=== PATIENT | male | born 1960 | race African-American/Black ===

== ENCOUNTER → 2017-03-08 | Outpatient (CLI) | payer OTHER ==
[~2017-03-08] VITALS: Ht 188 cm; Wt 101.2 kg
[~2017-03-08] MED LIST: CHLORHEXIDINE GLUCONATE 2 % 1 PACK (2 CLOTHS) TOPICAL PRN; INSULIN HUMAN REGULAR 1,000 UNITS/10 ML VIAL SQ PRN; LACTATED RINGER'S 1000 ML IV PRN; LIDOCAINE HCL 1% PF 5 ML SYRINGE OTHER ONE; METOPROLOL TARTRATE 25 MG TAB PO PRN; POVIDONE IODINE 5% (ANTISEPSIS KIT) 4 APPLICATIONS EACH NARE PRN; PROPOFOL 200 MG/20 ML AMP IV ONE; SODIUM CHLORID 0.9% 500 ML IV PRN
--- NOTE | 2017-03-08 15:30 | GIPROC ---
[facility] [address] [facility]. [facility], [address] COLONOSCOPY PROCEDURE REPORT EXAM DATE: 03/08/2017 PATIENT NAME: Stan Little MR #: [id number] BIRTHDATE: 1960 ENDOSCOPIST: Morgan Garcia MD ORDER #: [id number] COMPUTER ASSEMBLER: Alida Cm and Pepe Taylor STATUS: outpatient INDICATIONS: The patient is a 56 yr old male here for a colonoscopy due to rectal bleeding; no personal or family history of colorectal neoplasia. PROCEDURE PERFORMED: colonoscopy with polypectomy MEDICATIONS: Per Anesthesia. PREP QUALITY: fair ESTIMATED BLOOD LOSS: None CONSENT: The patient understands the risks and benefits of the procedure and understands that these risks include, but are not limited to: sedation, allergic reaction, infection, perforation and/or bleeding. Alternative means of evaluation and treatment include, among others: physical exam, x-rays, and/or surgical intervention. The patient elects to proceed with this endoscopic procedure. medical equipment was checked for proper function. Hand hygiene and appropriate measures for infection prevention was taken. After the risks, benefits and alternatives of the procedure were thoroughly explained, Informed consent was verified, confirmed and timeout was successfully executed by the treatment team. A digital exam was performed The Pentax [id number] endoscope was introduced through the anus and advanced to the cecum, which was identified by both the appendix and ileocecal valve. The instrument was then slowly withdrawn as the colon was fully examined. COLON FINDINGS: Cecal polyp. Retroflexion was performed. Doherty-diverticulosis was noted, to the cecum. A small, sessile cecal polyp and a small sessile rectal polyp were removed with cold snare polypectomy. Anusitis was noted with no internal hemorrhoids, fissures or other lesions to explain bleeding. The scope was then completely withdrawn from the patient and the procedure terminated. ADVERSE EVENTS: There were no complications. IMPRESSIONS: Doherty-diverticulosis Two polyps, removed with cold snare polypectomy. Suboptimal prep, preventing ideal evaluation. Anusitis, the explanation for the bleeding. RECOMMENDATIONS: HIgh fiber diet. Avoid caffeine, chocolate and citrus. Preparation H suppositories may be used per rectum at night, as needed for rectal bleeding. RECALL: Return 1 year Colonoscopy Morgan Garcia MD eSigned: Morgan Garcia MD 03/08/2017 3:30 PM cc: Dr. Barnes PATIENT NAME: Stan Little MR#: [id number]
[2017-03-08 16:14] VITALS: BP 137/94; PULSE 82; RESP 20; TEMP 97.6; O2SAT 97
--- NOTE | 2017-03-09 15:47 | EKG ---
Date Performed: 03/08/2017 Time Performed: 12:18:59 PTAGE: 56 years EKG: Sinus rhythm NORMAL ECG NO PREVIOUS TRACING DOCTOR: Lupis Pond Interpretating Date/Time 03/09/2017 15:45:50
== END ==
LOC: HEND 11:39
DX: K62.5 Hemorrhage of anus and rectum (principal); D12.0 Benign neoplasm of cecum; K62.1 Rectal polyp; K57.90 Diverticulosis of intestine, part unspecified, without perforation or abscess without bleeding; Z01.810 Encounter for preprocedural cardiovascular examination; K62.89 Other specified diseases of anus and rectum
CPT/HCPCS: 00810; 45385; 88305; 93005; J7120